=== PATIENT | male | born 1965 | race Caucasian/White ===

== ENCOUNTER 2016-06-11 01:44 | Emergency (ER) | payer OTHER | END 2016-06-11 06:10 | disposition left against medical advice (07) | LOC: ER 01:44 | DX: I21.3 ST elevation (STEMI) myocardial infarction of unspecified site (principal); I10 Essential (primary) hypertension; E11.9 Type 2 diabetes mellitus without complications; E78.00 Pure hypercholesterolemia, unspecified; Z88.1 Allergy status to other antibiotic agents; Z79.82 Long term (current) use of aspirin; Z79.899 Other long term (current) drug therapy | CPT/HCPCS: 36415; 96374; J1650 ==

== ENCOUNTER 2016-06-11 09:56 | Emergency (ER) | payer OTHER | END 2016-06-11 12:05 | disposition short-term general hospital (02) | LOC: ER 09:56 | DX: I21.4 Non-ST elevation (NSTEMI) myocardial infarction (principal); E11.9 Type 2 diabetes mellitus without complications; I10 Essential (primary) hypertension; Z88.0 Allergy status to penicillin | CPT/HCPCS: 36415; 96365; 96366 ==